=== PATIENT | male | born 1975 | race Caucasian/White ===

== ENCOUNTER 2024-05-07 03:55 | Emergency (ER) | payer OTHER, MEDICAID ==
[~2024-05-07] VITALS: Ht 177.8 cm; Wt 74.8 kg
[2024-05-07 04:07] VITALS: BP_SYST 137; PULSE 79; RESP 18; TEMP 97.7; O2SAT 97
[2024-05-07] MEDS: NACL 0.9% 1,000 ML IV ONE (04:47)
[2024-05-07] MEDS: LORazepam 2 MG/ML VIAL IVP ONE (04:53)
[2024-05-07] MEDS ORDERED: MVI 10 ML VIAL IV ONE (04:58)
[2024-05-07] MEDS ORDERED: FOLIC ACID 5 MG/ML VIAL IV ONE (04:58)
[2024-05-07] MEDS ORDERED: MAGNESIUM SULFATE 1 GM/2 ML VIAL ONE (04:58)
[2024-05-07] MEDS ORDERED: THIAMINE HCL 200 MG/2 ML VIAL ONE (04:58)
[2024-05-07] MEDS: FOLIC ACID 1 MG, THIAMINE HCL 100 MG, MAGNESIUM SULFATE 1 GM, MVI 10 ML in NACL 0.9% 1,... IV ONE (05:18)
[2024-05-07 05:54] LABS: BASOPHILS % (AUTO) 0.7 % (0.0-2.0); EOSINOPHILS # (AUTO) 0.1 K/uL (0.0-0.4); EOSINOPHILS % (AUTO) 2.5 % (0.0-4.0); HEMATOCRIT 47.4 % (36-54); LYMPHOCYTES # (AUTO) 2.1 K/uL (1.0-5.5); LYMPHOCYTES % (AUTO) 36.4 % (20.5-51.5); MEAN CORPUSCULAR HEMOGLOBIN 32 pg (27-31); MEAN CORPUSCULAR HGB CONC 34 % (32-36); MEAN CORPUSCULAR VOLUME 94 fL (79.0-98.0); MONOCYTES # (AUTO) 0.6 K/uL (0.0-1.0); MONOCYTES % (AUTO) 9.7 % (1.7-9.3); NEUTROPHILS # (AUTO) 2.9 K/uL (1.8-7.7); NEUTROPHILS % (AUTO) 50.7 % (40.0-70.0); PLATELET COUNT (AUTO) 211 K/uL (130-430); RED BLOOD CELL COUNT(AUTO) 5.02 MIL/uL (4.2-6.2); WHITE BLOOD COUNT (AUTO) 5.7 K/uL (4.8-10.8)
[2024-05-07 06:11] LABS: ALANINE AMINOTRANSFERASE 34 U/L (12-78); ALBUMIN 3.8 g/dL (3.4-4.8); ANION GAP 12 (5-15); ASPARTATE AMINOTRANSFERASE 26 U/L (10-37); BILIRUBIN,DIRECT 0.2 mg/dL (0.0-0.3); CALCIUM 8.8 mg/dL (8.4-11.0); CARBON DIOXIDE 26 mmol/L (23-29); CHLORIDE 106 mmol/L (98-107); CREATININE 1.09 mg/dL (0.55-1.30); GFR AFRICAN AMERICAN 93 mL/min (>90); GLUCOSE 90 mg/dL (74-106); POTASSIUM 3.4 mmol/L (3.5-5.1); SODIUM SERUM 144 mmol/L (136-145); TOTAL BILIRUBIN 1.4 mg/dL (0.0-1.0); TOTAL PROTEIN, SERUM 6.8 g/dL (6.4-8.3); UREA NITROGEN, BLOOD 18 mg/dL (8-21)
[2024-05-07 06:14] LABS: ALCOHOL, BLOOD < 3 mg/dL (<10); GFR NON AFRICAN-AMERICAN 77 mL/min (>90)
[2024-05-07] MEDS ORDERED: CHLO10CA7 PO (07:29)
[2024-05-07 09:10] VITALS: BP_SYST 125; PULSE 60; RESP 17; TEMP 97.7; O2SAT 97
== END 2024-05-07 09:08 | disposition home or self-care (01) ==
LOC: SED 03:55
DX: F10.20 Alcohol dependence, uncomplicated (principal); R25.1 Tremor, unspecified; R07.89 Other chest pain; F41.9 Anxiety disorder, unspecified; Y90.6 Blood alcohol level of 120-199 mg/100 ml
CPT/HCPCS: 99284; 96365; 96366; 96375; 80076; 80048; 85025; 84484; 36415; 93005; G0482; J3490; J2060; J3475; J3411